=== PATIENT | male | born 1960 | race Caucasian/White ===

== ENCOUNTER 2016-06-21 13:06 | Day surgery (SDC) | payer OTHER ==
[~2016-06-21] VITALS: Ht 180.3 cm; Wt 86.0 kg
[~2016-06-21 13:06] MED LIST: 0.9% Sodium Chloride 1,000 ML IV SCH; ALBU8.5H4 IH; CYCL1DRO AFFECT_EYE; MAGN400C PO; MELA1TAB9 PO; MELO7.5T13 PO; OMEP20TA86 PO; OXYC-407 PO; PREN-105 PO; Sodium Chloride LOK Flush 10 mL Syringe IV PRN; ZES20T PO; ZLP5T PO; fentaNYL-PF 50 mCg/mL 2 mL Inj IVPUSH PRN
[2016-06-21 14:23] VITALS: BP 136/88; PULSE 81; RESP 16; O2SAT 95
[2016-06-21 16:30] VITALS: BP 120/80; PULSE 84; RESP 16; O2SAT 96
[2016-06-21 16:40] VITALS: BP 107/74; PULSE 85; RESP 16; O2SAT 96
[2016-06-21 16:48] VITALS: BP 125/84; PULSE 87; RESP 16; O2SAT 95
--- NOTE | 2016-06-21 17:15 | ENDO ---
[address] [address] ENDOSCOPY PROCEDURE PATIENT: NURA MCCORD : 1960 MR#: [id number] ADMIT: 06/21/2016 JOB ID: [id number] DATE: 06/21/2016 PROCEDURE: Colonoscopy. INDICATIONS: Screening. ASA CLASSIFICATION: II MALLAMPATI SCORE: 2 MEDICATIONS: Versed at 7 mg, fentanyl 50 mcg. INSTRUMENT USED: PCF-H180AL. PREP QUALITY: Good. PROCEDURE DETAILS: After informed consent was obtained, the patient was brought into the GI suite, where he was placed on oxygen via nasal cannula and monitored with continuous pulse oximeter, telemetry, and blood pressure monitoring. A time-out was performed. Then, he was placed in a left lateral decubitus position and medications were administered for sedation. Digital rectal exam with palpation of the prostate was performed, which was unremarkable. The colonoscope was then inserted into the rectum and advanced under direct visualization to the cecum, which identified by the presence of the ileocecal valve and appendiceal orifice. Once the cecum was reached, the colonoscope was withdrawn back into the rectum as the mucosa and lumen were examined. In the rectum, retroflexion was performed. Following retroflexion, remaining air in the rectum was suctioned, and procedure was completed. FINDINGS: 1. Scattered diverticula were seen throughout the entire colon. 2. In the sigmoid colon, there appeared to be what looked like inverted diverticulum versus polyp. As I was unsure, biopsies were obtained, and Terese ink was injected distal and proximal to this area. 3. In the distal rectum, there was a diminutive polyp that was removed with cold biopsy forceps. IMPRESSION: 1. Pandiverticulosis. 2. Sigmoid polyp versus inverted diverticulum in sigmoid colon. 3. Rectal polyp. RECOMMENDATIONS: Await pathology pending polyp pathology results. Will schedule for repeat colonoscopy. COMPLICATIONS: None. ESTIMATED BLOOD LOSS: Less than 5 mL.
--- NOTE | 2016-07-02 16:55 | PATH ---
SURGICAL PATHOLOGY Attending Physician:Teha Prakash CASE STATUS: Signed Out * Amended * PATIENT NAME: NURA MCCORD PID: [id number] : 1960 DATE COLLECTED:06/21/2016 00:00 SPECIMEN: 1: Colon, Biopsy 2: Rectum, Biopsy CLINICAL HISTORY: 1). SIGMOID POLYP BIOPSY 2). RECTAL POLYP X1 FINAL DIAGNOSIS: 1. Sigmoid Colon, Polyp, Biopsy: Hyperplastic polyp. 2. Rectal Polyp x1, Biopsy: Hyperplastic polyp. ICD10 K63.5 This case was reviewed and interpreted by Dr. Asha Colón. The final diagnosis is changed in both parts from "sessile serrated polyp" to hyperplastic polyp. This amendment is issued in order for the report to cross the interface and be available in the hospital electronic medical record. GROSS DESCRIPTION: The specimen is received in two formalin filled containers labeled with the patient's name. 1). The specimen is sublabeled "sigmoid polyp" and consists of 2 portions of tissue which aggregate to 0.3 x 0.3 x 0.3 CM. The specimen is entirely submitted in cassette 1A. 2). The specimen is sublabeled "rectal polyp" and consists of a 0.3 x 0.2 x 0.2 CM portion of tissue which is entirely submitted in cassette 2A. 06/22/2016 [facility] [place] ICD-9 CODES: CPT CODES: 1: 34485 2: 57919 AMENDMENT(S): Amended: 07/02/2016 by Gisele Mora Reason:Miscellaneous The final diagnosis is unchanged. This amendment is issued in order for the report to cross the interface and be available in the hospital electronic medical record. Previous Signout Date: 06/25/2016 Electronically Signed Out Francine Jaimes MD [facility], [place] [address] Technical component performed at [facility], [address] [place] [address] [address], [place], [address]
== END 2016-06-21 23:59 | disposition home or self-care (01) ==
LOC: END 13:06
PROVIDERS: ATTEND Internal Medicine Gastroenterology
DX: Z12.11 Encounter for screening for malignant neoplasm of colon (principal); K62.1 Rectal polyp; K63.5 Polyp of colon; K57.30 Diverticulosis of large intestine without perforation or abscess without bleeding; I10 Essential (primary) hypertension; G89.29 Other chronic pain; M54.5 Low back pain; F17.210 Nicotine dependence, cigarettes, uncomplicated
CPT/HCPCS: 45380; 45381; 99153; G0500; J7030